=== PATIENT | male | born 1965 | race Caucasian/White ===

== ENCOUNTER → 2021-06-26 | Outpatient (CLI) | payer OTHER ==
[~2021-06-26] MED LIST: ASPIRIN EC81 M1 PO; BENTYL10 MG; BENTYL20 MG PO; BUPROPION XL300 MG PO; CATAPRES-TTS 20.2 MG; CEFDINIR300 MG PO; CEVIMELINE HCL30 MG PO; CLONAZEPAM PO; COQ-10100 MG PO; FISH OIL 1,0001 EAC5; LIPITOR 40 MG T40 M1 PO; LOSARTAN POTASS50 MG PO; LOVAZA1000 MG PO; MULTI-VITAMIN1 EAC5 PO; NASONEX17 GM NASAL; PROTONIX40 M2 PO; TOPROL XL50 MG PO; VASCEPA1 GM PO; VIIBRYD1 EACH; VIIBRYD20 MG PO; VITAMIN D325 MC3 PO; VITAMINS A-D-E1 EACH; XYZAL5 MG PO
== END ==
LOC: LAB 09:46
PROVIDERS: ATTEND Student in an Organized Health Care Education/Training Program
DX: Z01.812 Encounter for preprocedural laboratory examination (principal); Z20.822 Contact with and (suspected) exposure to COVID-19

== ENCOUNTER → 2021-06-28 | Outpatient (CLI) | payer OTHER ==
[~2021-06-28] VITALS: Ht 175.3 cm; Wt 78.0 kg
--- NOTE | 2021-06-28 14:52 | P ---
[facility] [place] [address] PROCEDURE REPORT Name: ROBIN OSWALD Room #: REG RIVKA Trivedi#: [id number] Admission: 06/28/21 Attend Phys: Rahul Salazar Discharge: Date of : 63 Report #: [id number] THIS REPORT FOR: cc: Dorene Malin MD, Constance M. MD McElhinney, Christian C. MD ~ cc: Dorene Malin MD DATE OF SERVICE: 06/28/2021 PROCEDURE PERFORMED: Colonoscopy. HISTORY OF PRESENT ILLNESS: The patient is a 55-year-old male with a history of colon polyps, here for a routine 5-year followup. He denies any symptoms. No family history of colon cancer. DESCRIPTION OF PROCEDURE: The risks and benefits of the procedure were explained to the patient, those risks including but not limited to bleeding, perforation and the risk of sedation. He understood these risks and gave informed consent. Sedation was given using propofol per anesthesia. Next, a digital rectal exam was initially performed, which was normal. Next, using a standard Olympus colonoscope, the scope was placed in the patient's anus and advanced under direct vision to the cecum. The overall prep was good. The cecum and ileocecal valve were normal in appearance. The ascending, transverse and descending colon were normal. Multiple small diverticula were noted in the sigmoid colon. No evidence of inflammation, otherwise normal. On retroflexion, no abnormalities were noted. The scope was then withdrawn and the procedure terminated. The patient tolerated the procedure well. IMPRESSION: 1. Sigmoid diverticulosis. 2. Otherwise, normal colonoscopy. RECOMMENDATIONS: Repeat colonoscopy in 10 years. Thank you for allowing me to participate in his care. <ELECTRONICALLY SIGNED> By: Rahul Soares MD 06/28/21 [id number] Rahul Soares MD /nt
== END | disposition home or self-care (01) ==
LOC: GI
PROVIDERS: ATTEND Specialist
DX: Z12.11 Encounter for screening for malignant neoplasm of colon (principal); Z86.010 Personal history of colon polyps; K57.30 Diverticulosis of large intestine without perforation or abscess without bleeding; I10 Essential (primary) hypertension; E78.00 Pure hypercholesterolemia, unspecified; F41.9 Anxiety disorder, unspecified; Z98.890 Other specified postprocedural states; Z79.899 Other long term (current) drug therapy; Z87.891 Personal history of nicotine dependence; Z88.2 Allergy status to sulfonamides; Z88.8 Allergy status to other drugs, medicaments and biological substances
CPT/HCPCS: 62110; 62900